=== PATIENT | female | born 1975 | race Caucasian/White ===

== ENCOUNTER 2017-11-13 02:52 | Emergency (ER) | payer OTHER ==
[~2017-11-13] VITALS: Ht 165.1 cm; Wt 95.5 kg
[2017-11-13] MEDS ORDERED: TraMADol HCL 50 MG TABLET PO ONE (05:30)
[2017-11-13 05:51] VITALS: BP 137/95
== END 2017-11-13 05:53 | disposition home or self-care (01) ==
LOC: EMS 02:53
DX: H60.91 Unspecified otitis externa, right ear (principal); F17.210 Nicotine dependence, cigarettes, uncomplicated
CPT/HCPCS: 99283; 99406